=== PATIENT | female | born 1965 | race Caucasian/White ===

== ENCOUNTER 2021-01-11 08:51 | Outpatient (REF) | payer OTHER, SELFPAY ==
--- NOTE | ~2021-01-11 | MM_ITS ---
EXAMINATION: MM SCREENING DIGITAL BREAST TOMOSYNTHESIS, BILATERAL CLINICAL INFORMATION: Screening. Asymptomatic. The lifetime risk of breast cancer based on the Tyrer-Cuzick Model is 7%. COMPARISON: Mammography: 01/13/2020, 01/07/2020, 01/01/2019, 12/10/2017; targeted left breast ultrasound 01/13/2020. TECHNIQUE: Digital breast tomosynthesis is performed in both the craniocaudal and mediolateral oblique views along with computer-aided detection (CAD). Synthesized 2D images are generated from the tomosynthesis. FINDINGS: The breasts are heterogeneously dense, which may obscure small masses (ACR BI-RADS breast composition Category c). There are no significant masses, abnormal calcifications, or other abnormalities. There are scattered isolated and small grouped and vascular calcifications. No developing density. The axilla and skin contours are unremarkable. No significant changes. MM/MM tomosynthesis screening BI IMPRESSION: No mammographic evidence of malignancy. ASSESSMENT: BI-RADS 2: Benign RECOMMENDATION: Routine annual mammography screening. This patient's information was entered into a reminder system with a target due date for their next mammogram.
== END 2021-01-11 08:52 | disposition home or self-care (01) ==
LOC: HO.MAMMO 08:51
PROVIDERS: PCP Internal Medicine; Visit Provider Internal Medicine
DX: Z12.31 Encounter for screening mammogram for malignant neoplasm of breast (principal)
CPT/HCPCS: 77063; 77067

== ENCOUNTER 2022-01-24 08:59 | Outpatient (REF) | payer OTHER, SELFPAY ==
--- NOTE | ~2022-01-24 | MM_ITS ---
EXAMINATION: MM SCREENING DIGITAL BREAST TOMOSYNTHESIS, BILATERAL CLINICAL INFORMATION: Screening. Asymptomatic. The lifetime risk of breast cancer based on the Tyrer-Cuzick Model is 6%. COMPARISON: Mammography: 01/11/2021, 01/13/2020, 01/07/2020, 01/01/2019 TECHNIQUE: Digital breast tomosynthesis is performed in both the craniocaudal and mediolateral oblique views along with computer-aided detection (CAD). Synthesized 2D images are generated from the tomosynthesis. FINDINGS: The breasts are heterogeneously dense, which may obscure small masses (ACR BI-RADS breast composition Category c). Parenchymal pattern is similar to prior exams and there is no developing density or interval architectural abnormality or mass. Scattered bilateral isolated and small grouped and vascular calcifications are again noted. The axilla and skin contours are unremarkable. There are no significant changes. MM/MM tomosynthesis screening BI IMPRESSION: No mammographic evidence of malignancy. ASSESSMENT: BI-RADS 2: Benign RECOMMENDATION: Routine annual mammography screening. This patient's information was entered into a reminder system with a target due date for their next mammogram.
== END 2022-01-24 09:00 | disposition home or self-care (01) ==
LOC: HO.MAMMO 08:59
PROVIDERS: Absent Provider Obstetrics & Gynecology; PCP Internal Medicine; Visit Provider Internal Medicine
DX: Z12.31 Encounter for screening mammogram for malignant neoplasm of breast (principal)
CPT/HCPCS: 77063; 77067

== ENCOUNTER 2023-02-21 09:31 | Outpatient (REF) | payer OTHER, SELFPAY ==
--- NOTE | ~2023-02-21 | MM_ITS ---
EXAMINATION: MM SCREENING DIGITAL BREAST TOMOSYNTHESIS, BILATERAL CLINICAL INFORMATION: Screening. Asymptomatic. Prior benign stereotactic biopsy on the right at 2012 at [facility]. COMPARISON: Mammography: 01/24/2022, 01/11/2021, 01/13/2020, 01/07/2020, 01/01/2019 TECHNIQUE: Digital breast tomosynthesis is performed in both the craniocaudal and mediolateral oblique views along with computer-aided detection (CAD). Synthesized 2D images are generated from the tomosynthesis. FINDINGS: The breasts are heterogeneously dense, which may obscure small masses (ACR BI-RADS breast composition Category c). There is redemonstration of bilateral scattered isolated and small grouped calcifications, unchanged, as well as subtle vascular calcifications. No developing masses or areas of architectural distortion. Parenchymal pattern is stable from prior exams, including a previously evaluated asymmetry in the anteromedial left breast best appreciated on the CC projection which is consistent with superimposition artifact. Within the left breast, middle one third, lower outer quadrant, abutting the posterior parenchymal cone, are increasing grouped microcalcifications for which magnification views are recommended. No additional suspicious features in either breast. MM/MM tomosynthesis screening BI IMPRESSION: Increasing grouped microcalcifications left breast, middle one third, slightly lower outer quadrant, abutting the posterior parenchymal cone. Recommend magnification views in the CC and ML projection for further assessment. Otherwise no additional suspicious findings in either breast. ASSESSMENT: BI-RADS BI-RADS 0 - Incomplete: Needs additional Imaging. RECOMMENDATION: 1. Additional magnification views of the left breast 2. Radiology department staff will contact the patient for additional imaging. Additional Imaging required This examination should not preclude the clinical evaluation of a suspicious palpable abnormality.
== END 2023-02-21 09:32 | disposition home or self-care (01) ==
LOC: HO.MAMMO 09:31
PROVIDERS: PCP Internal Medicine; Visit Provider Internal Medicine
DX: Z12.31 Encounter for screening mammogram for malignant neoplasm of breast (principal)
CPT/HCPCS: 77063; 77067

== ENCOUNTER → 2023-02-21 09:45 | Outpatient (BNV) | payer OTHER, SELFPAY | PROVIDERS: PCP Internal Medicine; Visit Provider Radiology Diagnostic Radiology | DX: Z12.31 Encounter for screening mammogram for malignant neoplasm of breast (principal) | CPT/HCPCS: 77063; 77067 ==

== ENCOUNTER 2023-02-26 14:04 | Outpatient (REF) | payer OTHER, SELFPAY ==
--- NOTE | ~2023-02-26 | MM_ITS ---
EXAMINATION: MM DIAGNOSTIC DIGITAL MAMMOGRAPHY, LEFT CLINICAL INFORMATION: Within the left breast, middle one third, lower outer quadrant, abutting the posterior parenchymal cone, are increasing grouped microcalcifications for which magnification views were recommended. COMPARISON: Mammography: 02/21/2023, 01/24/2022, 01/11/2021, 01/13/2020, 01/07/2020, 01/01/2019 TECHNIQUE: Digital mammography is performed in the following views: 2-D spot magnification views left breast, CC and ML views. FINDINGS: The breasts are heterogeneously dense, which may obscure small masses (ACR BI-RADS breast composition Category c). There is a small group of pleomorphic calcifications in the lateral, lower quadrant of the left breast, mid to posterior one third, which appear to have increased in number and pleomorphism. There are many differing shapes and sizes. No definite branching forms. These are suspicious and stereotactic guided biopsy is recommended. MM/MM added views LT IMPRESSION: Suspicious calcifications left breast lower outer quadrant, middle to posterior one third, for which stereotactic biopsy is recommended. Findings and recommendations were discussed with the patient in detail. ASSESSMENT: BI-RADS BI-RADS 4 - Suspicious finding RECOMMENDATION: Biopsy recommended This patient's information was entered into a reminder system with a target due date for their next mammogram.
== END 2023-02-26 14:05 | disposition home or self-care (01) ==
LOC: HO.MAMMO 14:04
PROVIDERS: Visit Provider Obstetrics & Gynecology
DX: N64.89 Other specified disorders of breast (principal)
CPT/HCPCS: 77065

== ENCOUNTER → 2023-02-26 14:30 | Outpatient (BNV) | payer OTHER, SELFPAY | PROVIDERS: Visit Provider Radiology Diagnostic Radiology | DX: R92.1 Mammographic calcification found on diagnostic imaging of breast (principal) | CPT/HCPCS: 77065 ==

== ENCOUNTER 2023-02-26 15:27 | Outpatient (AMB) | payer OTHER, SELFPAY ==
--- NOTE | 2023-02-26 15:28 | A.OFFVIS_ITS ---
Intake Vital Signs 02/26/23 15:32 Height 5 ft 2.5 in Weight 161 lb BMI 29.0 BP 200/97 H Blood Pressure Location Rt brachial Position Sitting Pulse 131 H Intake Visit Reasons: Stereo biopsy for Left breast calcifications Intake Note: Patient referred by Dr. Saunders for stereo bx on lt breast for calcifications. Patient denies lumps or growths on breasts. C/o tenderness on lt side trunk due to muscle pulled while doing laundry a couple weeks ago. Denies itch, rash on breasts, discharge from nipples. 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 Patient herself has no breast issues or complaints or symptoms. She denies any mass, discharge, skin changes. Patient called her to accompany her here to the office visit because she is very anxious and apprehensive. Chart was reviewed patient evaluated. Approximately 12 years ago patient had a right attempted stereotactic biopsy which became an open biopsy and was of benign pathology. No appreciable family history of breast or other cancers. [facility] Surgical History (Updated 02/27/23 @ 07:22 by Kahlil Mcqueen MD) S/P lumpectomy, right breast History of partial hysterectomy Social History (Updated 02/26/23 @ 15:38 by ALLAN Go) Alcohol intake: current Alcohol intake frequency: holidays/special occasions only Alcohol type: wine Patient Tobacco Use Status: Never used Tobacco Physical Exam Vital Signs: Last Vital Signs Pulse 131 H 02/26/23 15:32 BP 200/97 H 02/26/23 15:32 BMI result Body Mass Index 29.0 HEENT Other: No cervical adenopathy bilaterally. Chest Other: Bilateral breast exam demonstrates no obvious mass, discharge adenopathy, or skin changes bilaterally. No periclavicular or axillary adenopathy bilaterally. Right breast upper outer quadrant scar from previous surgery. GI Other: Abdomen mildly corpulent, soft, benign Assessment & Plan Assessment & Plan (1) Microcalcification of left breast on mammogram: Code(s): R92.0 - Mammographic microcalcification found on diagnostic imaging of breast Plan Discussed with the patient that she will undergo stereotactic biopsy tomorrow. We will follow-up with her and proximal weeks time and review the pathology results. Further interventions and studies will be directed by the above- mentioned pathology report. All questions were answered. Patient was reassured as much as possible . Orders: Orders MM stereotactic biopsy LT 1 Day R92.0 - Mammographic microcalcification found on diagnostic imaging of breast Coding Level of Care Code New Pt Level 5 (03714) Diagnoses Microcalcification of left breast on mammogram R92.0
[2023-02-26 15:32] VITALS: BP 200/97; PULSE 131; BMI 29.0
== END 2023-02-26 16:04 | disposition home or self-care (01) ==
PROVIDERS: PCP Internal Medicine; Visit Provider Surgery
DX: R92.0 Mammographic microcalcification found on diagnostic imaging of breast (principal)
CPT/HCPCS: 99204

== ENCOUNTER 2023-02-27 09:39 | Outpatient (REF) | payer OTHER, SELFPAY ==
--- NOTE | ~2023-02-27 | MM_ITS ---
EXAMINATION: STEREOTACTIC TOMOSYNTHESIS-GUIDED VACUUM-ASSISTED BREAST BIOPSY, LEFT SPECIMEN RADIOGRAPH, LEFT POST PROCEDURE DIGITAL MAMMOGRAM, LEFT CLINICAL INFORMATION: 57-year-old female, suspicious grouped calcifications seen lower outer left breast for which biopsy was recommended. COMPARISON: 02/26/2023, 02/21/2023, 01/24/2022, and dating back to 2018. TECHNIQUE/PROCEDURE: Informed consent was obtained from the patient after discussion of the benefits, risks, and alternatives to biopsy today. Patient appeared to understand. Gave opportunity for questions. Patient signed consent form. BIOPSY TABLE: [employer] Prone Biopsy System. LESION: Grouped pleomorphic calcifications. LOCAL ANESTHESIA: 5 mL 1% lidocaine; 7 mL 1% lidocaine with epinephrine. DERMATOTOMY: Single skin catarina dermatotomy performed. NEEDLE: [employer] Eviva 9-gauge vacuum assisted core biopsy device. APPROACH: caudal cranial. TARGETING: Combination of digital breast tomosynthesis and stereotactic digital mammography used for targeting. CORES: 7. CLIP: [employer]ridge SecurMark Cylinder-shaped marker. SPECIMEN RADIOGRAPH: Specimen radiograph is taken in separate room using digital mammography. The index calcifications are in the excised cores. POST PROCEDURE UNILATERAL DIGITAL MAMMOGRAM: The post biopsy mammogram is performed in separate room using separate digital mammography equipment from the biopsy procedure. CC and ML 2-D views are obtained. There are scattered areas of fibroglandular density (breast composition category: b). The clip marker is in accurate position. The calcifications are markedly decreased at the biopsy site. No gross hematoma. The patient tolerated the procedure well. No immediate complications. Home instructions reviewed with the patient. Final pathology results are pending. MM/MM stereotactic biopsy LT IMPRESSION: 1. Digital tomosynthesis-guided core biopsy left breast lower inner quadrant with clip placement. 2. Specimen radiograph taken and post procedure mammogram. There is satisfactory and accurate positioning of the biopsy clip. No evidence of hematoma. 3. Final pathology results pending. An addendum report will be issued.
[2023-02-27] MEDS: Lidocaine HCl 1 % 20 ML VIAL 4 ML SUBCUT (11:26)
[2023-02-27] MEDS: Sodium Bicarbonate 8.4% 50 MEQ/50 ML VIAL SUBCUT (11:27)
[2023-02-27] MEDS: Lidocaine HCl 1%/Epi 1:100,000 10 ML VIAL 16 ML SUBCUT (11:28)
== END 2023-02-27 09:40 | disposition home or self-care (01) ==
LOC: HO.MAMMO 09:39
PROVIDERS: Visit Provider Surgery
DX: R92.0 Mammographic microcalcification found on diagnostic imaging of breast (principal)
CPT/HCPCS: 19081; 88305; A4648

== ENCOUNTER → 2023-02-27 10:00 | Outpatient (BNV) | payer OTHER, SELFPAY | PROVIDERS: Visit Provider Radiology Diagnostic Radiology | DX: R92.1 Mammographic calcification found on diagnostic imaging of breast (principal) | CPT/HCPCS: 19081 ==

== ENCOUNTER 2023-03-05 13:27 | Outpatient (AMB) | payer OTHER, SELFPAY ==
--- NOTE | 2023-03-05 13:36 | MHC.OFFVIS ---
Intake Vital Signs 03/05/23 13:37 Height 5 ft 2.5 in Weight 160 lb BMI 28.8 BP 148/74 H Blood Pressure Location Rt brachial Position Sitting Pulse 115 H Intake Visit Reasons: S/p ST BX Left breast calcifications Intake Note: Patient here s/p Lt breast st bx. Reports incisions healing well. Patient feels better since telephone conversation with Dr. Mcqueen. Aware bx results benign. 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 Patient was reassured because of pathology is benign. [facility] Surgical History (Updated 02/27/23 @ 07:22 by Kahlil Mcqueen MD) S/P lumpectomy, right breast History of partial hysterectomy Social History (Updated 02/26/23 @ 15:38 by ALLAN Go) Alcohol intake: current Alcohol intake frequency: holidays/special occasions only Alcohol type: wine Patient Tobacco Use Status: Never used Tobacco Physical Exam Vital Signs: Last Vital Signs Pulse 115 H 03/05/23 13:37 BP 148/74 H 03/05/23 13:37 BMI result Body Mass Index 28.8 Chest Other: Mild ecchymosis over breast biopsy site but no evidence of infection Assessment & Plan Assessment & Plan (1) Microcalcification of left breast on mammogram: Code(s): R92.0 - Mammographic microcalcification found on diagnostic imaging of breast Plan Current plan is see the patient 6 months time with post biopsy mammograms. She is encouraged to do self-breast exams at least each month. She will see me as directed or p.r.n.. Coding Level of Care Code Est Pt Level 4 (34320) Diagnoses Microcalcification of left breast on mammogram R92.0
[2023-03-05 13:37] VITALS: BP 148/74; PULSE 115; BMI 28.8
== END 2023-03-05 13:47 | disposition home or self-care (01) ==
PROVIDERS: PCP Internal Medicine; Visit Provider Surgery
DX: R92.0 Mammographic microcalcification found on diagnostic imaging of breast (principal)
CPT/HCPCS: 99214

== ENCOUNTER → 2023-03-05 13:27 | Outpatient (BNVA) | payer OTHER, SELFPAY | PROVIDERS: PCP Internal Medicine; Visit Provider Surgery | DX: R92.0 Mammographic microcalcification found on diagnostic imaging of breast (principal) ==

== ENCOUNTER 2023-09-06 10:46 | Outpatient (REF) | payer OTHER, SELFPAY ==
--- NOTE | ~2023-09-06 | MM_ITS ---
EXAMINATION: MM DIAGNOSTIC DIGITAL BREAST TOMOSYNTHESIS, LEFT CLINICAL INFORMATION: 6 month follow-up after benign stereotactic biopsy for calcifications left breast 12:00 axis, mid depth. Pathology demonstrated fibrocystic change with apocrine metaplasia, columnar cell change, and calcium oxalate crystals; no evidence of malignancy or atypia. Findings were concordant with expectations. COMPARISON: Mammography: Left stereotactic biopsy 02/27/2023, left magnification views 02/26/2023, screening mammography 02/21/2023, 01/24/2022, 01/11/2021, and dating back to 2018. TECHNIQUE: Digital breast tomosynthesis is performed in both the craniocaudal and mediolateral oblique views along with computer-aided detection (CAD). Synthesized 2D images are generated from the tomosynthesis. In addition, 2-D spot magnification left CC and ML views were obtained of the biopsy site. FINDINGS: The breasts are heterogeneously dense, which may obscure small masses (ACR BI-RADS breast composition Category c). Magnification views of the left breast biopsies site demonstrate cylinder biopsy clip in place. There are a few scant remaining calcifications posteromedial to the biopsy clip, which have not significantly changed since the previous biopsy mammography of 02/26/2023. The main group of calcifications has been completely removed and sampled, with no recurrent calcifications surrounding the biopsy clip. There are no suspicious masses, new suspicious grouped calcifications, or developing areas of architectural distortion. The parenchymal pattern is completely stable from prior exams. There is no skin or axillary abnormality. MM/MM tomosynthesis diagnostic LT IMPRESSION: -No findings suspicious for malignancy left breast. -Suspicious cluster of calcifications has been completely sampled with no residual suspicious calcifications maintaining abutting the cylinder biopsy clip. A few scant calcifications remain posterolateral to the biopsy clip, unchanged from prebiopsy exam, benign. -With new baseline established of the left breast, recommend this patient resume routine annual screening mammography in 6 months to include both breasts. ASSESSMENT: BI-RADS BI-RADS 2 - Benign Findings RECOMMENDATION: 1 year F/U Results were provided to the patient at time of visit by the technologist. This patient's information was entered into a reminder system with a target due date for their next mammogram.
== END 2023-09-06 10:47 | disposition home or self-care (01) ==
LOC: HO.MAMMO 10:46
PROVIDERS: PCP Nurse Practitioner Family; Visit Provider Surgery
DX: R92.0 Mammographic microcalcification found on diagnostic imaging of breast (principal)
CPT/HCPCS: 77061; 77065

== ENCOUNTER → 2023-09-06 11:00 | Outpatient (BNV) | payer OTHER, SELFPAY | PROVIDERS: PCP Nurse Practitioner Family; Visit Provider Radiology Diagnostic Radiology | DX: R92.1 Mammographic calcification found on diagnostic imaging of breast (principal) | CPT/HCPCS: 77061; 77065 ==

== ENCOUNTER 2023-09-10 09:53 | Outpatient (AMB) | payer OTHER, SELFPAY ==
--- NOTE | 2023-09-10 09:59 | A.OFFVIS_ITS ---
Vital Signs 09/10/23 10:04 Height 5 ft 2.5 in Weight 164 lb BMI 29.5 BP 169/80 H Blood Pressure Location Rt brachial Position Sitting Pulse 85 Intake Visit Reasons: Breast exam, 6 month follow up Intake Note: Patient here for 6m f/u Lt br mm st bx on 02-28-24. Patient c/o: reports no changes or concerns. Denies nipple discharge, breast pain, tenderness. MM: 09-06-23. 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 Patient does do self exams. She has no issues or complaints regarding this. [facility] Surgical History S/P lumpectomy, right breast History of partial hysterectomy Social History Alcohol intake: current Alcohol intake frequency: holidays/special occasions only Alcohol type: wine Patient Tobacco Use Status: Never used Tobacco Physical Exam Vital Signs: Last Vital Signs Pulse 85 09/10/23 10:04 BP 169/80 H 09/10/23 10:04 BMI result Body Mass Index 29.5 Chest Other: Bilateral breast exam demonstrates no obvious mass, discharge, skin changes or periclavicular cervical or axillary adenopathy. GI Other: Abdomen corpulent, soft, benign Assessment & Plan Assessment & Plan (1) Screening breast examination: Code(s): Z12.39 - Encounter for other screening for malignant neoplasm of breast Category: Surgical Plan Patient is scheduled for annual mammography screening. Next this scheduled in March. She will see me after that visit. In the meantime she is encouraged to do self-breast exam. All questions answered. Coding Level of Care Code Est Pt Level 4 (76804) Diagnoses Screening breast examination Z12.39
[2023-09-10 10:04] VITALS: BP 169/80; PULSE 85; BMI 29.5
== END 2023-09-10 10:13 | disposition home or self-care (01) ==
PROVIDERS: PCP Internal Medicine; Visit Provider Surgery
DX: Z12.39 Encounter for other screening for malignant neoplasm of breast (principal)
CPT/HCPCS: 99214

== ENCOUNTER → 2023-09-10 09:53 | Outpatient (BNVA) | payer OTHER, SELFPAY | PROVIDERS: PCP Internal Medicine; Visit Provider Surgery | DX: R92.0 Mammographic microcalcification found on diagnostic imaging of breast (principal) ==

== ENCOUNTER 2024-03-19 10:41 | Outpatient (REF) | payer OTHER, SELFPAY ==
--- NOTE | ~2024-03-19 | MM_ITS ---
EXAMINATION: MM SCREENING DIGITAL BREAST TOMOSYNTHESIS, BILATERAL CLINICAL INFORMATION: Screening. Asymptomatic. COMPARISON: Mammography: Comparison is made with available priors TECHNIQUE: Digital breast mammography with tomosynthesis is performed in both the craniocaudal and mediolateral oblique views along with computer-aided detection (CAD). FINDINGS: The breasts are heterogeneously dense, which may obscure small masses (ACR BI-RADS breast composition Category c). Left: There are no significant masses, abnormal calcifications, or other abnormalities. Right: Asymmetry with questioned architectural distortion retroareolar region anterior depth on MLO view. No suspicious calcifications or other abnormal findings. MM/MM tomosynthesis screening BI IMPRESSION: Additional imaging is recommended ASSESSMENT: BI-RADS BI-RADS 0 - Incomplete: Needs additional Imaging. RECOMMENDATION: 1. Additional views of the right breast 2. Targeted ultrasound if warranted after review of the additional views. 3. Radiology department staff will contact the patient for additional imaging. Additional Imaging required This examination should not preclude the clinical evaluation of a suspicious palpable abnormality. This patient's information was entered into a reminder system with a target due date for their next mammogram. Electronically signed by: Nancy Martin DO 03/19/2024 12:03 PM [facility]QU[facility]
== END 2024-03-19 10:42 | disposition home or self-care (01) ==
LOC: HO.MAMMO 10:41
PROVIDERS: Absent Provider Surgery; PCP Nurse Practitioner Family; Visit Provider Nurse Practitioner Family
DX: Z12.31 Encounter for screening mammogram for malignant neoplasm of breast (principal)
CPT/HCPCS: 77063; 77067

== ENCOUNTER → 2024-03-19 11:00 | Outpatient (BNV) | payer OTHER, SELFPAY | PROVIDERS: Absent Provider Surgery; PCP Nurse Practitioner Family; Visit Provider Internal Medicine | DX: Z12.31 Encounter for screening mammogram for malignant neoplasm of breast (principal) | CPT/HCPCS: 77063; 77067 ==

== ENCOUNTER 2024-03-24 09:13 | Outpatient (AMB) | payer OTHER, SELFPAY ==
--- NOTE | 2024-03-24 09:20 | A.OFFVIS_ITS ---
Vital Signs 03/24/24 09:32 BP 179/77 H Blood Pressure Location Rt brachial Position Sitting Pulse 106 H Intake Visit Reasons: Breast exam, 6 month follow up Intake Note: Patient here for 6m breast exam. Reports recent mammo on 03-19-24. Patient c/o: no concerns. Was told has to have a repeat breast ultrasound. 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 In the meantime, patient has no breast issues or complaints. She denies any mass, pain, discharge, or skin changes. She does periodic breast exams. Patient is known to me from the past. [facility] Surgical History S/P lumpectomy, right breast History of partial hysterectomy Social History Alcohol intake: current Alcohol intake frequency: holidays/special occasions only Alcohol type: wine Patient Tobacco Use Status: Never used Tobacco Physical Exam Vital Signs: Last Vital Signs Pulse 106 H 03/24/24 09:32 BP 179/77 H 03/24/24 09:32 HEENT Other: No cervical, periclavicular, or axillary adenopathy bilaterally Chest Other: Chest breath sounds bilaterally. Breast exam demonstrates no obvious mass, discharge, adenopathy, or skin changes bilaterally. GI Other: Abdomen corpulent, soft, benign Assessment & Plan Assessment & Plan (1) Breast mass, right: Code(s): N63.10 - Unspecified lump in the right breast, unspecified quadrant Category: Surgical Plan Patient was scheduled for spot mammogram of the right breast lesion with possible ultrasound and will see me after this study. Arrangements were made for this. Coding Level of Care Code Est Pt Level 4 (18994) Diagnoses Breast mass, right N63.10
[2024-03-24 09:32] VITALS: BP 179/77; PULSE 106
== END 2024-03-24 09:56 | disposition home or self-care (01) ==
PROVIDERS: PCP Internal Medicine; Visit Provider Surgery
DX: N63.10 Unspecified lump in the right breast, unspecified quadrant (principal)
CPT/HCPCS: 99214

== ENCOUNTER → 2024-03-24 09:13 | Outpatient (BNVA) | payer OTHER, SELFPAY | PROVIDERS: PCP Internal Medicine; Visit Provider Surgery | DX: R92.0 Mammographic microcalcification found on diagnostic imaging of breast (principal); Z12.39 Encounter for other screening for malignant neoplasm of breast ==

== ENCOUNTER 2024-04-23 10:34 | Outpatient (REF) | payer OTHER, SELFPAY ==
--- NOTE | ~2024-04-23 | MM_ITS ---
EXAMINATION: MM DIAGNOSTIC DIGITAL BREAST TOMOSYNTHESIS, BILATERAL CLINICAL INFORMATION: Call back from screening for distortion the right breast on MLO view. COMPARISON: Mammography: Available prior examinations. TECHNIQUE: Digital breast tomosynthesis is performed in both the craniocaudal and mediolateral oblique views along with computer-aided detection (CAD). Synthesized 2D images are generated from the tomosynthesis. FINDINGS: The breasts are extremely dense, which lowers the sensitivity of mammography (ACR BI-RADS breast composition Category d). Upon further history the patient has had an excisional biopsy in the right breast which accounts for the previously seen architectural distortion. Additional imaging demonstrates the distortion is CONSPICUOUS and correlates with the surgical scar. Post surgical changes are stable. There are no significant masses, abnormal calcifications, or other abnormalities. MM/MM tomosynthesis added views R IMPRESSION: No mammographic evidence of malignancy. ASSESSMENT: BI-RADS BI-RADS 2 - Benign Findings RECOMMENDATION: 1 year F/U Results were provided to the patient at time of visit by the technologist. This patient's information was entered into a reminder system with a target due date for their next mammogram. Electronically signed by: Nancy Martin DO 04/23/2024 11:41 AM [facility]QUEL
== END 2024-04-23 10:35 | disposition home or self-care (01) ==
LOC: HO.MAMMO 10:34
PROVIDERS: PCP Nurse Practitioner Family; Visit Provider Surgery
DX: R92.8 Other abnormal and inconclusive findings on diagnostic imaging of breast (principal)
CPT/HCPCS: 77061; 77065

== ENCOUNTER → 2024-04-23 11:00 | Outpatient (BNV) | payer OTHER, SELFPAY | PROVIDERS: PCP Nurse Practitioner Family; Visit Provider Internal Medicine | DX: R92.343 Mammographic extreme density, bilateral breasts (principal); L90.5 Scar conditions and fibrosis of skin | CPT/HCPCS: 77061; 77065 ==

== ENCOUNTER 2024-04-28 09:49 | Outpatient (AMB) | payer OTHER, SELFPAY ==
--- NOTE | 2024-04-28 09:50 | A.OFFVIS_ITS ---
Vital Signs 04/28/24 09:54 Weight 164 lb BP 128/72 Blood Pressure Location Rt brachial Position Sitting Pulse 76 Intake Visit Reasons: s/p mammo Intake Note: Patient here s/p mammogram on 04-23-2024. Patient c/o: no concerns. Results were already provided by radiologist. 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 She has no breast issues or complaints. She does periodic breast exams. Mammograms demonstrate postsurgical changes from prior biopsy in the distant past but no other concerning pathology. Radiologic recommendation is for follow-up mammogram 1 year's time. [facility] Surgical History S/P lumpectomy, right breast History of partial hysterectomy Social History Alcohol intake: current Alcohol intake frequency: holidays/special occasions only Alcohol type: wine Patient Tobacco Use Status: Never used Tobacco Physical Exam Vital Signs: Last Vital Signs Pulse 76 04/28/24 09:54 BP 128/72 04/28/24 09:54 Chest Other: No evidence of periclavicular axillary or cervical adenopathy bilaterally. Bilateral breast exam no obvious mass, discharge, skin changes. No tenderness. GI Other: Abdomen moderately corpulent, soft, benign Assessment & Plan Assessment & Plan (1) Screening breast examination: Code(s): Z12.39 - Encounter for other screening for malignant neoplasm of breast Category: Surgical Plan Current plan is see the patient in roughly 1 year's time status post her bilateral mammograms. During this interim, she is encouraged to continue self-b reast exams. All questions answered. Coding Level of Care Code Est Pt Level 4 (08431) Diagnoses Screening breast examination Z12.39
[2024-04-28 09:54] VITALS: BP 128/72; PULSE 76
== END 2024-04-28 10:01 | disposition home or self-care (01) ==
PROVIDERS: PCP Nurse Practitioner Family; Visit Provider Surgery
DX: Z12.39 Encounter for other screening for malignant neoplasm of breast (principal)
CPT/HCPCS: 99214

== ENCOUNTER 2025-03-23 10:32 | Outpatient (REF) | payer OTHER, SELFPAY ==
--- NOTE | ~2025-03-23 | MM_ITS ---
EXAMINATION: MM SCREENING DIGITAL BREAST TOMOSYNTHESIS, BILATERAL CLINICAL INFORMATION: Screening. Asymptomatic. COMPARISON: Mammography: Comparison is made with available priors TECHNIQUE: Digital breast mammography with tomosynthesis is performed in both the craniocaudal and mediolateral oblique views along with computer-aided detection (CAD). FINDINGS: The breasts are extremely dense, which lowers the sensitivity of mammography. Left marker clip. Right postsurgical changes. There are no significant masses, abnormal calcifications, or other abnormalities. MM/MM tomosynthesis screening BI IMPRESSION: No mammographic evidence of malignancy. ASSESSMENT: BI-RADS Category 2: Benign RECOMMENDATION: Routine annual mammography screening. 1 year F/U This examination should not preclude the clinical evaluation of a suspicious palpable abnormality. This patient's information was entered into a reminder system with a target due date for their next mammogram. Electronically signed by: Nancy Martin DO 03/24/2025 08:30 AM [facility] [place], [place]
--- OUTSIDE RECORDS SUMMARY | 2025-03-23 12:11 | XMS_ITS | Continuity of Care Document ---
Author Organization [place] - [facility] Address [address] [place] [address] Care Team Providers Care Operating Systems Specialist Name Role Phone ASHLEY YOUNG Primary Care Provider [phone] Assessment No assessment recorded. Plan of Treatment Reminders Order Date Submit Date Provider Last Modified By Organization Details Last Modified Time Details Appointments None record ed. Lab None record ed. Referral None record ed. Procedures None record ed. Surgeries None record ed. Imaging None record ed. Medication Orders None record ed. Patient TargetsNo targets recorded. Patient InstructionsNo instructions recorded. Reason for Referral None Reported. Problems Name Problem SNOMED Code Status Onset Date Resolution Date Notes Provider Name and Address Organization Details Recorded Time Mixed conductive AND sensorineur al hearing loss 51552047 Active 2024 ALFREDITO IQBAL MA, CCC-A [address] [place] [address], [phone], [facility] - [facility] 5 09:26:22 Foreign body in left auditory canal Active 2024 ZEINA DUMONT MD [address] [place] [address], [phone], [facility] - [facility] 5 09:37:06 Impacted cerumen in right ear [id number] 103 Active 2024 ZEINA DUMONT MD [address] [place] [address], [place], [phone], [facility] - [facility] 5 09:37:12 Problem Notes None recorded. Procedures Surgical History Date Name Laterality Status Provider Name and Address Organization Details Recorded Time 09/25/19 25 Comp Audio with Tymps - 59689 & 70686 completed ALFREDITO IQBAL MA, CCC-A [address] [facility], [place], [address], [place] - [facility] 09/24/2024 09:26:40 09/25/19 Removal of foreign body from ear canal completed ZEINA ORTEGA MD [address] [facility], [place], [address], [place] - [facility] 09/24/2024 08:48:22 biopsy of breast completed Etelvina Ross [place] - [facility] 09/24/2024 08:32:40 section completed Etelvina Ross [place] - [facility] 09/24/2024 08:50:13 hysterectomy completed Etelvina Ross [place] - [facility] 09/24/2024 08:50:22 complete primary rhinoplasty completed Etelvina Ross [place] - [facility] 09/24/2024 08:50:51 Imaging Results None recorded. Procedure Notes None recorded. Medical Equipment None Reported. Allergies No known drug allergies Medications Name Sig Start Date Stop Date Status Note LastModified by Organization Details LastModified Time atorvastati n 10 mg tablet TAKE 1 TABLET BY MOUTH EVERY DAY active Not Available Not Available No t Available prednisone 20 mg tablet TAKE 3 TABLETS FOR 3 DAYS, THEN 2 TABLETS FOR 3 DAYS THYEN 1 TABLET FOR 3 DAYS 09/24 completed Not Available Not Available Not Available sertraline 100 mg tablet TAKE 2 TABLETS BY MOUTH EVERY DAY active Not Available Not Available No t Available pimecrolimu s 1 % topical cream APPLY TO AFFECTED AREA TWICE A DAY active Not Available Not Available No t Available lorazepam 0.5 mg tablet TAKE 1 TABLET BY MOUTH TWICE A DAY NEEDED active Not Available Not Available No t Available triamcinolo ne acetonide 0.025 % topical cream PLEASE SEE ATTACHED FOR DETAILED DIRECTION S active Not Available Not Available No t Available amlodipine 10 mg tablet TAKE 1 TABLET BY MOUTH EVERY DAY active Not Available Not Available No t Available benzonatate 100 mg capsule TAKE 1 CAPSULE BY MOUTH 3 TIMES A DAY FOR 7 DAYS 09/24 completed Not Available Not Available Not Available sertraline 25 mg tablet TAKE 1 TABLET BY MOUTH EVERY DAY active Not Available Not Available No t Available gabapentin 100 mg capsule TAKE 1 CAPSULE BY MOUTH THREE TIMES A DAY active Not Available Not Available No t Available benazepril 10 mg tablet TAKE 1 TABLET BY MOUTH EVERY DAY active Not Available Not Available No t Available Vitamin D active Not Available Not Brit ilable Not Available multivitami n active Not Available Not Available Not Available levocetiriz ine 5 mg tablet TAKE 1 TABLET BY MOUTH TWICE A DAY DIRECTED active Not Available Not Available No t Available Paxlovid 300 mg (150 mg x 2)-100 mg tablets in a dose pack TAKE 3 TABLETS BY MOUTH TWICE A DAY X 5 DAYS WITH FOOD 09/24 completed Not Available Not Available Not Available Vitals None Recorded Social History None recorded. Functional Status None recorded. Mental Status None recorded. Family History Nothing Reported. Medical History Condition Response Hyperlipidemia Y Arthritis Y Hearing Loss Y Hypertension Y Anxiety Y Asthma Y Gynecological HistoryNo gynecological history recorded. Obstetrics History GPAL:G 0 P 0 0 0 0 Past Encounters Encounter ID Performer Location Encounter Start Date Encounter Closed Date Diagnosis/Indication Diagnosis SNOMED-CT Code Diagnosis ICD10 Code Diagnosis IMO Codes Diagnosis Note [id number] L[place]Y [place] [address] [facility],[place] [address] [facility] [place] [address] 12/31/2024 09:05:07 01/01/2025 15:50:56 Mixed conductive AND sensorineural hearing loss [id number] H90.A32 [id number] Hearing Aid Orientatio n Manufactur er: Phonak Infinio 70RColor: sand beigeEarpi sheree: power c-shell Serial NumbersRig ht: NALeft: [id number] Warranty: 01/10/2028 Accessorie s: Component Inspector FAITH Real ear: Done with good success.Br ought back to 85% with AUto Acclim ONOcc biofuels engineering manager set to weakHer own voice seems metallic- I am hoping that she will get used to some of this. Reviewed:shawna hernandezDid not pair to phone or discuss. Follow up 2-3 weeks.Jossy ent knows to call with any major problems. [id number] LUDY [place] [address] [facility],[place] [address] [facility] [place] [address] 01/19/2025 13:22:39 01/20/2025 13:11:49 Mixed conductive AND sensorineural hearing loss [id number] H90.A32 [id number] Hearing Aid Orientatio n Manufactur er: Phonak Infinio 70RColor: sand beigeEarpi sheree: power c-shell Serial NumbersRig ht: NALeft: [id number] Warranty: 01/10/2028 Accessorie s: Component Inspector FAITH Real ear: Done with good success.Br ought back to 85% with AUto Acclim ONOcc biofuels engineering manager set to weakHer own voice seems metallic- I am hoping that she will get used to some of this. Reviewed:shawna johnston controlDid not pair to phone or discuss. Follow up 2-3 weeks.Jossy ent knows to call with any major problems. Health Concerns Section Related Observation LastModified by Organization Detai ls LastModified Time None Recorded Concern Status LastModified by Organization Details LastModified Time None Recorded Payers Encounter Date Sequence Insurance Name Policy Number Policy Peterson Covered Member ID Peterson Member ID Guarantor Name 01/19/2025 1 [facility] [place] Julia Snell [id number] Julia Snell OBGyn Episode No OBEpisode recorded.
--- OUTSIDE RECORDS SUMMARY | 2025-03-23 12:11 | XMS_ITS | Clinical Summary ---
Author Organization [facility] Address [address] [place] [address] Phone Care Team Providers Care Supervisor Ticket Sales Name Role Phone Magen Mc MD Primary Care Provider Allergies No known active allergies Medications cholecalciferol, vitamin D3, 1,000 unit capsule Take by mouth. Active multivit-mineral s/ferrous fum (MULTI VITAMIN ORAL) Take by mouth. Active amLODIPine (NORVASC) 5 MG tablet Take 5 mg by mouth. Active losartan (COZAAR) 50 MG tablet Take 100 mg by mouth. Active atorvastatin (LIPITOR) 10 MG tablet Take 10 mg by mouth daily. Active loratadine (CLARITIN) 10 mg tablet Take 10 mg by mouth daily. Active sertraline (ZOLOFT) 100 MG tablet Take 200 mg by mouth daily. Active estradioL (DIVIGEL) 0.5 mg/0.5 gram (0.1 %) transdermal gel packetIndication s:Postmenopausal symptoms Place 1 packet onto the skin daily. 90 packet 1 01/21/2020 Active Active Problems Problem Noted Date Diagnosed Date Women's annual routine gynecological examination 10/14/2018 Anxiety 06/10/2017 Depression 06/10/2017 Menopausal syndrome 06/10/2017 Sleep disorder 06/10/2017 Family History Medical History Relation Comments Heart disease Father Kidney disease Father Heart disease Mother Hypertension Mother Kidney disease Mother Relation Status Comments Father Mother Social History Tobacco Use Types Packs/Day Years Used Date Smoking Tobacco: Never Smokeless Tobacco: Never Alcohol Use Standard Drinks/Week Comments Yes 0 (1 standard drink = 0.6 oz pur e alcohol) couple xyearly Education Answer Date Recorded Are you interested in more education? Not on maxime e 09/07/2022 Are you concerned about learning? Not on file 09/07/2022 No 09/07/2022 No 09/07/2022 Digital Access Answer Date Recorded No 10/06/2022 No 10/06/2022 Reliable internet access at home? Not on file 10/06/2022 Device with a working camera? Not on file Comments No Sex and Gender Information Value Date Recorded Sex Assigned at Not on file Legal Sex Female 3:37 PM EDT Gender Identity Not on file Sexual Orientation Not on file Last Filed Vital Signs Vital Sign Reading Time Taken Comments Blood Pressure 118/80 01/21/2020 9:53 AM EDT Pulse - - Temperature - - Respiratory Rate - - Oxygen Saturation - - Inhaled Oxygen Concentration - - Weight 73.3 kg (161 lb 9.6 oz) 01/21/2020 9:53 A M EDT Height 158.5 cm (5' 2.4 ) 01/21/2020 9:53 AM EDT Body Mass Index 29.18 01/21/2020 9:53 AM EDT Plan of Treatment Health Maintenance Due Date Last Done Comments Adult Td,Tdap Booster 1963 CREATININE LEVEL 1963 LIPID PANEL 1963 POTASSIUM LEVEL 1963 DEPRESSION SCREENING 1975 HEPATITIS C SCREENING 1981 HIV ONE-TIME SCREENING (18-6 5 YEARS) 1981 PAP SMEAR 1984 COLOGUARD 2008 COLONOSCOPY 2008 COLORECTAL CANCER SCREENING 2008 FIT TEST 2008 FOBT 2008 SIGMOIDOSCOPY 2008 VIRTUAL COLONOSCOPY 2008 PNEUMOCOCCAL VACCINES (50+ years) (1 of 1 - PCV) 2013 ZOSTER VACCINES (1 of 2) 2013 MAMMOGRAM 01/06/2022 01/07/2020, 01/01/2019 INFLUENZA VACCINE (#1) 2024 9, 02/17/2018, 02/25/2017 COVID-19 VACCINE (3 - 2024-2 6 season) 2025 09/17/2020, 08/20/2020 RSV VACCINE (1 - 1-dose 75+ series) 2038 SMOKING STATUS SCREENING (On ce After 26 Yrs) Completed 10/14/2018 HEPATITIS A VACCINES Aged Out No long er eligible based on patient's age to complete this topic HIB VACCINES Aged Out No longer eligi ble based on patient's age to complete this topic IPV VACCINES Aged Out No longer eligi ble based on patient's age to complete this topic MENINGOCOCCAL VACCINES (ACWY) Aged Out No longer eligible based on patient's age to complete this topic MENINGOCOCCAL VACCINES (B) Aged Out N o longer eligible based on patient's age to complete this topic Medical Devices Not on file Procedures Procedure Name Priority Date/Time Associated Diagnosis Comments MAMMOGRAPHY Routine 01/07/2020 from Last 3 Months or Most Recently Relevant to Health Maintenance Results * MAMMOGRAPHY FOR RESULT ENTRY ONLY (01/07/2020) Magen Mc MD HEALTH MAINTENANCE Richa l Result from Last 3 Months or Most Recently Relevant to Health Maintenance Insurance [facility] [place] [address] [facility] Care Teams Supervisor Ticket Sales Relationship Specialty Start Date End Date Magen Mc MD [address] [place] [id number] PCP - General 12/09/17 Additional Source Comments The information contained in this document represents components of the legal health record. It is not the complete legal health record.[facility]
--- OUTSIDE RECORDS SUMMARY | 2025-03-23 12:11 | XMS_ITS | Patient Health Record ---
Author Organization [facility] Address [address] [facility] [place] [address] Care Team Providers Care Emt I/85 Name Role Phone Pilo DINH, Dc Primary Care Provider Lisandro Berry Unavailable [phone] Allergies Allergen (clinical drug ingredient) Drug/Non Drug Allergy documented on EMR Reaction Allergy Type Onset Date Status codeine Codeine Unknown Drug Allergy Active morphine Morphine Unknown Drug Allergy Active Reason For Referral No Information Medications Medication SIG (Take, Route, Frequency, Duration) Notes Start Date End Date Status Multivitamins Active Zoloft 125/150 mg Ac tive Advil Active hydroCHLOROthiazide 25 mg Active Problems Problem Type SNOMED Code ICD Code Onset Dates Problem Status W/U Status Risk Notes Problem Metatarsalgia (83839942) Metatarsalgia (726.70) Active confirmed Plan Of Treatment No Information Insurance Providers Payer Name Payer Address Payer Phone Subscriber Number Group Number Insured Name Patient Relationship to Insured Coverage Start Date Coverage End Date [facility] [address] [place] [address] [id number] ALTON LOPEZ Self - patient is the insured Medical (General) History Medical History History ICD Code anxiety back, hip, knee pain chicken pox sinus conditions hypertension Surgical History Surgery Date(Month/Year) hysterectomy
--- OUTSIDE RECORDS SUMMARY | 2025-03-23 12:11 | XMS_ITS | Continuity of Care Document ---
Author Organization [place] - [facility] Address [address] [place] [address] Care Team Providers Care Propeller Driven Airplane Mechanic Name Role Phone ASHLEY YOUNG Primary Care Provider [phone] Assessment No assessment recorded. Plan of Treatment [...] Mixed conductive AND sensorineur al hearing loss 62802320 Active 2024 ALFREDITO IQBAL MA, CCC-A [address] [place] [address], [phone], [facility] - [facility] 5 09:26:22 Foreign body in left auditory canal Active 2024 ZEINA DUMONT MD [address] [place] [address], [phone], [facility] - [facility] 5 09:37:06 Impacted cerumen in right ear [id number] 103 Active 2024 ZEINA DUMONT MD [address] [place] [address], [place], [phone], [facility] - [facility] 5 09:37:12 Problem Notes None recorded. Procedures Surgical History Date Name Laterality Status Provider Name and Address Organization Details Recorded Time 09/25/19 25 Comp Audio with Tymps - 15314 & 44962 completed ALFREDITO IQBAL MA, CCC-A [address] [facility] [place] [address], [place], [address], [place] [facility] 09/24/2024 09:26:40 09/25/19 Removal of foreign body from ear canal completed ZEINA ORTEGA MD 100 [facility] [place] [address], [place], [address], [place] [facility] 09/24/2024 08:48:22 biopsy of breast completed Etelvina Ross [place] - [facility] 09/24/2024 08:32:40 section completed Etelvina Ross [place] - [facility] 09/24/2024 08:50:13 hysterectomy completed Etelvina Ross [place] - [facility] 09/24/2024 08:50:22 complete primary rhinoplasty completed Etelvina Ross [place] - [facility] 09/24/2024 08:50:51 Imaging Results None recorded. 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 My biggest concern being that she won't have enough long-term power for her hearing loss. Purchased? Took the info home to discuss with her . Interested in:Phonak Infinio 70R with c-shell (canal lock)P1 Needs appt for impression if she decides to proceed. [id number] LUDY SALCEDO [place]ARC[place] [address] [facility],[place] [address] [address] [place] [address] 12/31/2024 09:05:07 01/01/2025 15:50:56 Mixed conductive AND sensorineural hearing loss 24834865 H90.A32 [id number] Hearing Aid Orientatio n Manufactur er: Phonak Infinio 70RColor: sand beigeEarpi sheree: power c-NextWidgets Serial NumbersRig ht: NALeft: [id number] Warranty: 01/10/2028 Accessorie s: Rail Setter FAITH Real ear: Done with good success.Br ought back to 85% with AUto Acclim ONOcc area loss prevention manager set to weakHer own voice seems metallic- I am hoping that she will get used to some of this. Reviewed:shawna kraft ume controlDid not pair to phone or discuss. Follow up 2-3 weeks.Jossy ent knows to call with any major problems. Health Concerns Section Related Observation LastModified by Organization Detai ls LastModified Time None Recorded Concern Status LastModified by Organization Details LastModified Time None Recorded Payers Encounter Date Sequence Insurance Name Policy Number Policy Peterson Covered Member ID Peterson Member ID Guarantor Name 12/31/2024 1 [facility] [place] Julia Snell [id number] Julia Snell OBGyn Episode No OBEpisode recorded.
--- OUTSIDE RECORDS SUMMARY | 2025-03-23 12:11 | XMS_ITS | Data Portability ---
Author Organization [place] - [facility], Allergy Address [address] [place] [address] Care Team Providers Care Button Pusher Name Role Phone ASHLEY YOUNG Primary Care Provider [phone] Assessment No assessment recorded. Plan of Treatment Reminders Order Date Submit Date Provider Last Modified By Organization Details Last Modified Time Details Appointments None record ed. Lab None record ed. Referral None record ed. Procedures None record ed. Surgeries None record ed. Imaging None record ed. Medication Orders None record ed. Patient TargetsNo targets recorded. Patient Instructions Encounter Date Encounter Id Patient Instructions Last Modified By Organization Details Last Modified Time 09/24/2024 [id number] Patient with multiple FB in left ear and hx of HL left side. Suggest new style of hearing aid, avoidance of Qtips andvinegar for cerumen. [email or web address] Not available 09/24/2024 09:40:15 Reason for Referral None Reported. Results Created Date Observation Date Name Description Value Unit Range Abnormal Flag Note LastModifiedBy Organization Detail LastModifiedTime 09/25/19 25 audio gram No observ ation record ed. BARCODE Not Available 2024 10:03:31 Result Notes None recorded. Problems Name Problem SNOMED Code Status Onset Date Resolution Date Notes Provider Name and Address Organization Details Recorded Time Mixed conductive AND sensorineur al hearing loss 90098821 Active 2024 ALFREDITO IQBAL [place], [facility] [address] [address], [place], [address] [place] - [facility] 09:26:22 Foreign body in left auditory canal Active 2024 ZEINA DUMONT MD [address] [place] [address], [place], [address], [place] - [facility] 09:37:06 Impacted cerumen in right ear [id number] 103 Active 2024 ZEINA DUMONT MD [address] [address], [place], [address], [place] - [facility] 09:37:12 Problem Notes None recorded. Procedures Surgical History Date Name Laterality Status Provider Name and Address Organization Details Recorded Time 09/25/19 Comp Audio with Tymps - 16542 & 08139 completed ALFREDITO IQBAL [place], [facility] [address] [address], [place], [address], [place] [facility] 09/24/2024 09:26:40 09/25/19 Removal of foreign body from ear canal completed ZEINA ORTEGA MD [address] [place] [address], [place], [address], [place] - [facility] 09/24/2024 08:48:22 biopsy of breast completed Etelvina Ross [place] - [facility] 09/24/2024 08:32:40 section completed Etelvina Ross [place] - [facility] 09/24/2024 08:50:13 hysterectomy completed Etelvina Ross [place] - [facility] 09/24/2024 08:50:22 complete primary rhinoplasty completed Etelvina Ross [place] - [facility] 09/24/2024 08:50:51 Imaging Results None recorded. [...] Not Available Not Available Not Available Vitals Date Recorded Body height Body weight Provider Name and Address Organization Details Last Updated DateTime 09/24/2024 157.48 cm 26335.74 g Etelvina Ross [place] - [facility] 09/24/2024 08:49:14 Social History None recorded. Functional Status None recorded. Mental Status None recorded. Family History Nothing Reported. Medical History Condition Response Hyperlipidemia Y Hearing Loss Y Arthritis Y Hypertension Y Anxiety Y Asthma Y Gynecological HistoryNo gynecological history recorded. Obstetrics History GPAL:G 0 P 0 0 0 0 Past Encounters Encounter ID Performer Location Encounter Start Date Encounter Closed Date Diagnosis/Indication Diagnosis SNOMED-CT Code Diagnosis ICD10 Code Diagnosis IMO Codes Diagnosis Note [id number] ZEINA BATISTA MD [facility] [address] [address] 09/24/2024 08:18:19 09/24/2024 09:41:56 Mixed conductive AND sensorineural hearing loss [id number] H90.A32 [id number] Audiologic al evaluation results:Ri ght ear:Normal hearing with excellent word recognitio n.Left ear:Severe - profound hearing loss with a slight conductive overlay with excellent word recognitio n. Tympanomet ry:Right Ear:Type ALeft Ear:Type A Foreign norbert dy in left auditory canal [id number] 7103 T16.2XXA 00199900 Multiple FB removed left ear canal. 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 My biggest concern being that she won't have enough long-term power for her hearing loss. Purchased? Took the info home to discuss with her . Interested in:Phonak Infinio 70R with c-shell (canal lock)P1 Needs appt for impression if she decides to proceed. 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 My biggest concern being that she won't have enough long-term power for her hearing loss. Purchased? Took the info home to discuss with her . Interested in:Phonak Infinio 70R with c-shell (canal lock)P1 Needs appt for impression if she decides to proceed. [id number] LUDY SALCEDO [place] 100 [facility], [address] [place] [address] 12/31/2024 09:05:07 01/01/2025 15:50:56 Mixed conductive AND sensorineural hearing loss 47848785 H90.A32 81002189 Hearing Aid Orientatio n Manufactur er: Phonak Infinio 70RColor: sand beigeEarpi sheree: power c-shell Serial NumbersRig ht: NALeft: [id number] Warranty: 01/10/2028 Accessorie s: Senior Core Java Developer FAITH Real ear: Done with good success.Br ought back to 85% with AUto Acclim ONOcc digital production manager set to weakHer own voice seems metallic- I am hoping that she will get used to some of this. Reviewed:shawna johnston controlDid not pair to phone or discuss. Follow up 2-3 weeks.Jossy ent knows to call with any major problems. [id number] LUDY SALCEDO [place]ARCIA - [place] 100 [facility] 100 [place] [address] 01/19/2025 13:22:39 01/20/2025 13:11:49 Mixed conductive AND sensorineural hearing loss 56068904 H90.A32 [id number] Hearing Aid Orientatio n Manufactur er: Phonak Infinio 70RColor: sand beigeEarpi sheree: power c-shell Serial NumbersRig ht: NALeft: [id number] Warranty: 01/10/2028 Accessorie s: Senior Core Java Developer FAITH Real ear: Done with good success.Br ought back to 85% with AUto Acclim ONOcc digital production manager set to weakHer own voice seems metallic- I am hoping that she will get used to some of this. Reviewed:shawna johnston controlDid not pair to phone or discuss. Follow up 2-3 weeks.Jossy ent knows to call with any major problems. Health Concerns Section Related Observation LastModified by Organization [place] LastModified Time None Recorded Concern Status LastModified by Organization Details LastModified Time None Recorded Advance Directives Directive None Recorded Payers Insurance Date Sequence Insurance Name Policy Number Policy Peterson Covered Member ID Peterson Member ID Guarantor Name 01/19/2025 1 [facility] [place] [place] Julia Snell [id number] Julia Snell Notes Date Note Type Note Provider Name and Address Organization Details Recorded Time 09/24/2024 text/html ROS as noted in the HPI Hx of left Hl presumed viral many years ago with MRI negative.Has concern about FB in left earHas aid left ear for about 10 years ZEINA ORTEGA MD [address] [place] [address], [phone], [facility] - [facility] 09/24/2024 09:40:41 OBGyn Episode No OBEpisode recorded.
== END 2025-03-23 10:33 | disposition home or self-care (01) ==
LOC: HO.MAMMO 10:32
PROVIDERS: Absent Provider Obstetrics & Gynecology; PCP Nurse Practitioner Family; Visit Provider Nurse Practitioner Family
DX: Z12.31 Encounter for screening mammogram for malignant neoplasm of breast (principal)
CPT/HCPCS: 77063; 77067

== ENCOUNTER → 2025-03-23 10:45 | Outpatient (BNV) | payer OTHER, SELFPAY | PROVIDERS: Absent Provider Obstetrics & Gynecology; PCP Nurse Practitioner Family; Visit Provider Internal Medicine | DX: Z12.31 Encounter for screening mammogram for malignant neoplasm of breast (principal) | CPT/HCPCS: 77063; 77067 ==

== ENCOUNTER 2025-03-31 10:05 | Outpatient (AMB) | payer OTHER, SELFPAY ==
--- NOTE | 2025-03-31 10:39 | A.OFFVIS_ITS ---
Intake Visit Reasons: Dr Mcqueen pt ( mammo results) Allergies No Known Allergies Allergy (Verified 04/28/24 09:53) Medication List - Last Reconciled 03/31/25 by Adam Reese MD [id number]-aqtrxb-mv-min-FA 2-200 gram-mcg tabs PO acetaminophen ER (Tylenol 8 Hour) 650 mg PO Q12H amlodipine 10 mg PO DAILY atorvastatin 10 mg PO DAILY benazepril 10 mg PO DAILY estradiol transdermal gabapentin 100 mg PO TID lorazepam 0.5 mg PO BID PRN sertraline 25 mg PO DAILY sertraline 200 mg PO DAILY HPI HPI Dr Mcqueen pt ( mammo results): Details: [age] year old female here to discuss her mammogram from last week. She had a history of breast biopsy 2 years ago for calcifications and the path report had shown fibrocystic changes and benign findings. She had been followed by Dr. Mcqueen since that time She denies any new palpable masses. She denies any nipple or skin changes. She feels well overall. [facility] Surgical History S/P lumpectomy, right breast History of partial hysterectomy Social History Alcohol intake: current Alcohol intake frequency: holidays/special occasions only Alcohol type: wine Patient Tobacco Use Status: Never used Tobacco Review of Systems Const Denies chills and Denies fever(s) Card Denies chest pain, Denies dyspnea and Denies dyspnea on exertion Resp Denies cough, Denies dyspnea and Denies dyspnea on exertion GI Denies hematochezia and Denies change in bowel habits Denies hematuria Musc Denies back pain and Denies limited range of motion Neuro Denies focal weakness and Denies convulsions Psych Denies depression and Denies mood swings Physical Exam Const General: comfortable and no acute distress Orientation/consciousness: patient oriented x3 Neck Neck: Yes no lymphadenopathy Chest Other: No palpable breast masses, no nipple or skin changes, no axillary lymphadenopa thy Resp Auscultation: clear to auscultation bilaterally Cardio Rhythm: regular rhythm GI Palpation (GI): Soft to palpation, nontender and no guarding Neuro General: patient oriented x3 Assessment & Plan Assessment & Plan (1) Screening breast examination: Code(s): Z12.39 - Encounter for other screening for malignant neoplasm of breast Category: Surgical Plan: Her mammogram from last week shows no mammographic evidence of malignancy. A new another program with the next year has been recommended and I reminded her about this Current exam does not suggest any palpable masses. I will see her again in the office after her mammogram next year. Coding Level of Care Code Est Pt Level 3 (51140) Diagnoses Screening breast examination Z12.39
--- OUTSIDE RECORDS SUMMARY | 2025-03-31 19:04 | XMS_ITS | Data Portability ---
Author Organization [place] - [facility], Allergy Address [address] [place] [address] Care Team Providers Care Instructor Kindergarten Name Role Phone ASHLEY YOUNG Primary Care Provider [phone] Assessment No assessment recorded. Plan of Treatment [...] By Organization Details Last Modified Time 09/24/2024 [id number] Patient with multiple FB in left ear [...] Mixed conductive AND sensorineur al hearing loss 50342295 Active 2024 ALFREDITO IQBAL [place], [facility] [address] [address], [place], [address] [place] - [facility] 09:26:22 Foreign body in left auditory canal Active 2024 ZEINA DUMONT MD [address] [place] [address], [place], [address], [place] - [facility] [place] 09:37:06 Impacted cerumen in right ear 7532870470325 103 Active 2024 ZEINA DUMONT MD [address] [address], [place], [address], [place] - [facility] 09:37:12 Problem Notes None recorded. Procedures Surgical History Date Name Laterality Status Provider Name and Address Organization Details Recorded Time 09/25/19 Comp Audio with Tymps - 06599 & 95067 completed ALFREDITO IQBAL [place], [facility] [address] [address], [place], [address], [place] [facility] 09/24/2024 09:26:40 09/25/19 Removal of foreign body from ear canal completed ZEINA ORTEGA MD [address] [place] [address], [place], [address], [place] - [facility] 09/24/2024 08:48:22 biopsy of breast completed Etelvina Ross [place] - [facility] 09/24/2024 08:32:40 section completed Etelvina Ross [place] - [facility] 09/24/2024 08:50:13 hysterectomy completed Etelvina Ross [place] - [facility] 09/24/2024 08:50:22 complete primary rhinoplasty completed Etelvina Ross [place] - [facility] 09/24/2024 08:50:51 Imaging Results None recorded. [...] Details Last Updated DateTime 09/24/2024 157.48 cm 63432.74 g Etelvina Ross [place] - [facility] 09/24/2024 08:49:14 Social History None recorded. [...] ICD10 Code Diagnosis IMO Codes Diagnosis Note [id number] ZEINA BATISTA MD [facility] [address] [address] 09/24/2024 08:18:19 09/24/2024 09:41:56 Mixed conductive AND sensorineural hearing loss 33252420 H90.A32 [id number] Audiologic al evaluation results:Ri ght ear:Normal hearing with excellent word recognitio n.Left ear:Severe - profound hearing loss with a slight conductive overlay with excellent word recognitio n. Tympanomet ry:Right Ear:Type ALeft Ear:Type A Foreign norbert dy in left auditory canal 4164041443 7103 T16.2XXA 94700407 Multiple FB removed left ear canal. 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 [id number] LUDY SALCEDO - [place] 100 [facility], [address] [place] [address] 12/31/2024 09:05:07 01/01/2025 15:50:56 Mixed conductive AND sensorineural hearing loss 87784777 H90.A32 [id number] Hearing Aid Orientatio n Manufactur er: Phonak Infinio 70RColor: sand beigeEarpi sheree: power c-shell Serial NumbersRig ht: NALeft: [id number] Warranty: 01/10/2028 Accessorie s: Supply Service Worker FAITH Real ear: Done with good success.Br ought back to 85% with AUto Acclim ONOcc dietary manager set to weakHer own voice seems metallic- I am hoping that she will get used to some of this. Reviewed:shawna johnston controlDid not pair to phone or discuss. Follow up 2-3 weeks.Jossy ent knows to call with any major problems. [id number] LUDY SALCEDO GARCIA - [place] 100 [facility] 100 [place] [address] 01/19/2025 13:22:39 01/20/2025 13:11:49 Mixed conductive AND sensorineural hearing loss 75769120 H90.A32 87265382 Hearing Aid Orientatio n Manufactur er: Phonak Infinio 70RColor: sand beigeEarpi sheree: power c-shell Serial NumbersRig ht: NALeft: [id number] Warranty: 01/10/2028 Accessorie s: Supply Service Worker FAITH Real ear: Done with good success.Br ought back to 85% with AUto Acclim ONOcc dietary manager set to weakHer own voice seems [...] Peterson Member ID Guarantor Name 01/19/2025 1 [facility] [place] Julia Snell [id number] Julia Snell Notes Date Note Type Note Provider Name and Address Organization Details Recorded Time 09/24/2024 text/html ROS as noted in the HPI Hx of left Hl presumed viral many years ago with MRI negative.Has concern about FB in left earHas aid left ear for about 10 years ZEINA ORTEGA MD [address] [place] [address], [address], [facility] - [facility] 09/24/2024 09:40:41 OBGyn Episode No OBEpisode recorded.
--- OUTSIDE RECORDS SUMMARY | 2025-03-31 19:04 | XMS_ITS | Clinical Summary ---
Author Organization [facility] Address [address] [place] [id number] Phone Care Team Providers Care Reheater Name Role Phone Magen Mc MD Primary [...] or Most Recently Relevant to Health Maintenance Care Teams Reheater Relationship Specialty Start Date End Date Magen Mc MD [address] [place] [id number] PCP - General 12/09/17 Additional Source Comments The information contained in this document represents components of the legal health record. It is not the complete legal health record.[facility]
--- OUTSIDE RECORDS SUMMARY | 2025-03-31 19:04 | XMS_ITS | Continuity of Care Document ---
Author Organization [place] - [facility] Address [address] [place] [address] Care Team Providers Care Transport Technician Name Role Phone ASHLEY YOUNG Primary Care Provider Assessment No assessment recorded. Plan of Treatment [...] Mixed conductive AND sensorineur al hearing loss 02504954 Active 2024 ALFREDITO IQBAL [place], [facility]-A [address] [place] [address], [address], [facility] - [facility] 5 09:26:22 Foreign body in left auditory canal Active 2024 ZEINA DUMONT MD [address] [place] [address], [address], [facility] - [facility] 5 09:37:06 Impacted cerumen in right ear 1982766308145 103 Active 2024 ZEINA DUMONT MD [address] [place] [address], [place], [address], [facility] - [facility] 5 09:37:12 Problem Notes None recorded. Procedures Surgical History Date Name Laterality Status Provider Name and Address Organization Details Recorded Time 09/25/19 25 Comp Audio with Tymps - 50411 & 87391 completed ALFREDITO IQBAL [place], CCC-A 100 [facility] 100, [place], [address], [place] - [facility] 09/24/2024 09:26:40 09/25/19 Removal of foreign body from ear canal completed ZEINA ORTEGA MD 100 [facility] 100, [place], [address], [place] [facility] 09/24/2024 08:48:22 biopsy of breast completed Etelvina Ross [place] - [facility] 09/24/2024 08:32:40 section completed Etelvina Ross [place] - [facility] 09/24/2024 08:50:13 hysterectomy completed Etelvina Ross [place] - [facility] 09/24/2024 08:50:22 complete primary rhinoplasty completed Etelvina Ross [place] - [facility] 09/24/2024 08:50:51 Imaging Results None recorded. [...] ICD10 Code Diagnosis IMO Codes Diagnosis Note [id number] LUDY SALCEDO [place]ARC[place] 100 [facility],[address] [place] [address] 12/31/2024 09:05:07 01/01/2025 15:50:56 Mixed conductive AND sensorineural hearing loss 15444440 H90.A32 [id number] Hearing Aid Orientatio n Manufactur er: Phonak Infinio 70RColor: sand beigeEarpi sheree: power c-shell Serial NumbersRig ht: NALeft: [id number] Warranty: 01/10/2028 Accessorie s: Management Nurse Rn FAITH Real ear: Done with good success.Br ought back to 85% with AUto Acclim ONOcc manager privacy set to weakHer own voice seems metallic- I am hoping that she will get used to some of this. Reviewed:shawna hernandezDid not pair to phone or discuss. Follow up 2-3 weeks.Jossy ent knows to call with any major problems. [id number] LUDY SALCEDO [place]ARC[place] 100 [facility],[address] [place] [address] 01/19/2025 13:22:39 01/20/2025 13:11:49 Mixed conductive AND sensorineural hearing loss 61072747 H90.A32 [id number] Hearing Aid Orientatio n Manufactur er: Phonak Infinio 70RColor: sand beigeEarpi sheree: power c-shell Serial NumbersRig ht: NALeft: [id number] Warranty: 01/10/2028 Accessorie s: Management Nurse Rn FAITH Real ear: Done with good success.Br ought back to 85% with AUto Acclim ONOcc manager privacy set to weakHer own voice seems metallic- [...] Peterson Member ID Guarantor Name 01/19/2025 1 [facility] [place] Julia Snell [id number] Julia Snell OBGyn Episode No OBEpisode recorded.
--- OUTSIDE RECORDS SUMMARY | 2025-03-31 19:04 | XMS_ITS | Continuity of Care Document ---
Author Organization [place] - [facility] Address [address] [place] [id number] Care Team Providers Care Picker Machine Operator Name Role Phone ASHLEY YOUNG Primary Care Provider [phone] Assessment No assessment recorded. Plan of Treatment [...] Mixed conductive AND sensorineur al hearing loss [id number] Active 2024 ALFREDITO IQBAL MA, CCC-A [address] [place] [address], [phone], [facility] - [facility] 5 09:26:22 Foreign body in left auditory canal Active 2024 ZEINA DUMONT MD [address] [place] [address], [phone], [facility] - [facility] 5 09:37:06 Impacted cerumen in right ear [id number] 103 Active 2024 ZEINA DUMONT MD [address] [place] [address], [place], [phone], [facility] - [facility] 5 09:37:12 Problem Notes None recorded. Procedures Surgical History Date Name Laterality Status Provider Name and Address Organization Details Recorded Time 09/25/19 25 Comp Audio with Tymps - 87870 & 93534 completed ALFREDITO IQBAL MA, CCC-A [address] [facility], [place], [address], [place] - [facility] 09/24/2024 09:26:40 09/25/19 Removal of foreign body from ear canal completed ZEINA ORTEGA MD [address] [facility], [place], [address], [place] - [facility] 09/24/2024 08:48:22 biopsy of breast completed Etelvina Ross [place] - [facility] 09/24/2024 08:32:40 section completed Etelvina Ross [place] - [facility] 09/24/2024 08:50:13 hysterectomy completed Etelvina Ross [place] - [facility] 09/24/2024 08:50:22 complete primary rhinoplasty completed Etelvina Ross [place] - [facility] 09/24/2024 08:50:51 Imaging Results None recorded. Procedure [...] ICD10 Code Diagnosis IMO Codes Diagnosis Note [id number] LUDY SALCEDO GARCIA [place] [address] 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 [id number] LUDY SALCEDO GARCIA [place] [address] [facility],[address] [place] [address] 12/31/2024 09:05:07 01/01/2025 15:50:56 Mixed conductive AND sensorineural hearing loss [id number] H90.A32 [id number] Hearing Aid Orientatio n Manufactur er: Phonak Infinio 70RColor: sand beigeEarpi sheree: power c-Picket Serial NumbersRig ht: NALeft: [id number] Warranty: 01/10/2028 Accessorie s: Machine Cutter FAITH Real ear: Done with good success.Br ought back to 85% with AUto Acclim ONOcc information technology project manager set to weakHer own voice seems [...] Peterson Member ID Guarantor Name 12/31/2024 1 [facility] Julia Snell [id number] Julia Snell OBGyn Episode No OBEpisode recorded.
--- OUTSIDE RECORDS SUMMARY | 2025-03-31 19:05 | XMS_ITS | Patient Health Record ---
Author Organization [facility] Address [address] [facility] [place] [address] Care Team Providers Care Cash Grain Farmer Name Role Phone Pilo DINH, Dc Primary Care Provider Lisandro Berry Unavailable [phone] Allergies Allergen (clinical drug ingredient) Drug/Non Drug [...] Status W/U Status Risk Notes Problem Metatarsalgia (35088377) Metatarsalgia (726.70) Active confirmed Plan Of Treatment No Information Insurance Providers Payer Name Payer Address Payer Phone Subscriber Number Group Number Insured Name Patient Relationship to Insured Coverage Start Date Coverage End Date [facility] [address] [facility] [place] [address] [id number] ALTON LOPEZ Self - patient is the insured Medical (General) History Medical History History ICD Code anxiety back, hip, knee pain chicken pox sinus conditions hypertension Surgical History Surgery Date(Month/Year) hysterectomy
== END 2025-03-31 11:03 | disposition home or self-care (01) ==
PROVIDERS: PCP Nurse Practitioner Family; Visit Provider Surgery
DX: Z12.39 Encounter for other screening for malignant neoplasm of breast (principal)
CPT/HCPCS: 99213